=== PATIENT | female | born 1960 | race Caucasian/White ===

== ENCOUNTER 2019-07-27 13:51 | Observation (INO) | payer BC ==
[~2019-07-27] VITALS: Ht 162.6 cm; Wt 72.0 kg
[~2019-07-27 13:51] MED LIST: ESTR0.3T10 PO; PANT40TA39 PO; ZOLP5TAB8 PO
[2019-07-27 14:24] LABS: BASOPHILS # (AUTO) 0.1 X10'3 (0-0.2); BASOPHILS % (AUTO) 0.8 % (0-1); EOSINOPHILS # (AUTO) 0.2 X10'3 (0-0.9); EOSINOPHILS % (AUTO) 2.4 % (0-6); HEMATOCRIT 39.8 % (35.0-45.0); HEMOGLOBIN 13.5 g/dl (12.0-16.0); LYMPHOCYTES # (AUTO) 3.2 X10'3 (1.1-4.8); LYMPHOCYTES % (AUTO) 51.4 % (21-51); MEAN CORPUSCULAR HEMOGLOBIN 30.9 PG (27.0-31.0); MEAN PLATELET VOLUME 8.2 FL (7.4-10.4); MONOCYTES # (AUTO) 0.5 X10'3 (0-0.9); MONOCYTES % (AUTO) 7.8 % (2-12); NEUTROPHILS # (AUTO) 2.4 X10'3 (1.8-7.7); NEUTROPHILS % (AUTO) 37.6 % (42-75); PLATELET COUNT 289 X10'3 (140-440); RED BLOOD COUNT 4.37 X10'6 (4.20-5.60); WHITE BLOOD COUNT 6.3 X10'3 (4.5-11.0)
[2019-07-27 14:36] LABS: PARTIAL THROMBOPLASTIN TIME 27 SECONDS (22-32)
[2019-07-27 14:39] LABS: ALANINE AMINOTRANSFERASE 46 U/L (12-78); ALBUMIN 3.9 G/DL (3.4-5.0); ALBUMIN/GLOBULIN RATIO 1.1 (1.1-1.5); ALKALINE PHOSPHATASE 67 IU/L (46-116); ANION GAP 5 (8-16); ASPARTATE AMINO TRANSFERASE 23 U/L (10-37); BILIRUBIN,TOTAL 0.5 MG/DL (0.1-1.0); BLOOD UREA NITROGEN 12 MG/DL (7-18); BUN/CREATININE RATIO 16.4 (6.6-38.0); CALCIUM 9.4 MG/DL (8.5-10.1); CHLORIDE 103 MMOL/L (99-107); CREATININE 0.73 MG/DL (0.40-0.90); GLUCOSE 88 MG/DL (70-104); SODIUM 139 MMOL/L (135-145); TOTAL CARBON DIOXIDE 31.4 MMOL/L (24-32); TOTAL PROTEIN 7.5 G/DL (6.4-8.2); eGFR 81 ML/MIN
[2019-07-27 14:58] LABS: PLATELET ESTIMATE NORMAL; TOTAL CELLS COUNTED 100
[2019-07-27 14:59] LABS: GIANT PLATELET FEW
[2019-07-27] MEDS ORDERED: PANT40TA4 PO (16:38)
[2019-07-27] MEDS ORDERED: IRBE1TAB33 PO (16:38)
[2019-07-27] MEDS ORDERED: MONT10TA24 PO (16:38)
[2019-07-27] MEDS ORDERED: ALBU8.5H8 IH (16:38)
[2019-07-27] MEDS ORDERED: ESTR0.452 PO (16:38)
[2019-07-27] MEDS ORDERED: SUMA100T16 PO (16:38)
[2019-07-27] MEDS ORDERED: LEVO25TA2 PO (16:38)
[2019-07-27] MEDS ORDERED: aspirin 81mg tab.chew PO ONE (16:50)
[2019-07-27] MEDS ORDERED: mag hydrox/Alum hydrox/simeth 30ml oral suspension PO PRN (19:45)
[2019-07-27] MEDS ORDERED: ondansetron/PF 4mg/2ml inj IV PRN (19:45)
[2019-07-27] MEDS ORDERED: acetaminophen 325mg tablet PO PRN (19:45)
[2019-07-27] MEDS ORDERED: magnesium hydroxide 30ml (MOM) UD suspension PO PRN (19:45)
[2019-07-27 20:10] LABS: HEMOGLOBIN A1C 5.9 % (4.5-6.2)
[2019-07-27] MEDS ORDERED: albuterol 2.5 MG/3 ML nebule NEB PRN (20:10)
[2019-07-27] MEDS: heparin, porcine 5000 units/ml vial SQ SCH (20:34)
--- NOTE | 2019-07-28 01:44 | NUR ---
assumed care from Sherman BROCK no questions or concerns after assuming care.
--- NOTE | 2019-07-28 01:47 | NUR ---
patient in bed eyes closed covers on eyes closed rr even un labored no observable s/s of acute stress/pain at this time will continue to monitor
[2019-07-28 03:24] LABS: CHOL/HDL RATIO 2.8 (0.00-4.99); CHOLESTEROL 239 MG/DL (0-200); HDL CHOLESTEROL 86 MG/DL (35-60); LDL CHOLESTEROL 142 MG/DL (50-100); TRIGLYCERIDES 83 MG/DL (20-135)
--- NOTE | 2019-07-28 04:27 | NUR ---
PARTIENT IN BED COVERS ON EYES CLOSED RR EVEN UN LABORED NO OBSERVABLE S/S OF ACUTE STRESS AT THIS TIME WILL CONTINUE TO MONITOR
--- NOTE | 2019-07-28 05:34 | NUR ---
ASKED TO REVIEW CHART BY NURSING SUP FOR ADMIT TO FLOOR.
--- NOTE | 2019-07-28 06:24 | NUR ---
SBAR TO KAYE RN NO QUESTIONS OR CONCERNS AFTER ASSUMING CARE
--- NOTE | 2019-07-28 07:20 | NUR ---
RECEIVED REPORT AND PATIENT FROM OR. PATIENT AWAKE ALERT AND ORIENTED . DENIES CHEST PAIN, SOB, AND NAUSEA AT THIS TIME. PLACED IN ROOM 307; BED LOW AND LOCKED ,CALL LIGHT IN REACH. TELE MONITOR SHOWS SR NO ECTOPY. Addendum: 07/28/19 at 1047 by Jayashree Maurer RN Amended: Links added.
[2019-07-28 07:31] VITALS: BP 140/77
[2019-07-28] MEDS ORDERED: pantoprazole 40mg Tablet.DR PO SCH (08:00)
[2019-07-28] MEDS ORDERED: losartan 50mg tablet PO SCH (08:00)
[2019-07-28] MEDS ORDERED: levoTHYROXINE 25mcg tablet PO SCH (08:00)
[2019-07-28] MEDS ORDERED: montelukast 10mg tablet PO SCH (08:00)
[2019-07-28] MEDS ORDERED: HYDROchlorothiazide 12.5mg capsule PO SCH (08:00)
[2019-07-28] MEDS ORDERED: ESTROGENS CONJUGATED 0.45 MG PO SCH (08:00)
[2019-07-28] MEDS: heparin, porcine 5000 units/ml vial SQ SCH (08:23)
--- NOTE | 2019-07-28 10:41 | NUR ---
DR. COTTER INTO SEE PATIENT, ORDERS GIVEN AND NOTED. PATIENT DENIES CHEST PAIN, SOB, AND, OR, NAUSEA AT THIS TIME. Addendum: 07/28/19 at 1043 by Jayashree Maurer RN Amended: Links added.
[2019-07-28 11:00] VITALS: BP 148/85
== END 2019-07-28 14:00 | disposition home or self-care (01) ==
LOC: ER 13:51 → ED HOLD 20:01 → MED 3N 07-28 07:00
PROVIDERS: ADMIT Internal Medicine; ATTEND Family Medicine
DX: R07.89 Other chest pain (principal); I20.0 Unstable angina; I10 Essential (primary) hypertension; Z90.49 Acquired absence of other specified parts of digestive tract; Z90.710 Acquired absence of both cervix and uterus; Z93.3 Colostomy status; Z79.899 Other long term (current) drug therapy; Z88.2 Allergy status to sulfonamides
CPT/HCPCS: 36415; 71045; 80053; 80061; 83036; 84484; 85025; 85610; 85730; 87081; 93005; 93306; 94760; 96372; 99284; G0378; J1644

== ENCOUNTER 2024-03-20 13:32 | Emergency (ER) | payer MEDICARE, OTHER ==
[~2024-03-20] VITALS: Ht 162.6 cm; Wt 85.5 kg
[~2024-03-20 13:32] MED LIST changes: +ALBU8.5H17 IH; -ESTR0.3T10 PO; +ESTR0.452 PO; +IRBE1TAB33 PO; +LEVO25TA2 PO; +MONT-40 PO; -PANT40TA39 PO; +PANT40TA54 PO; +SUMA100T16 PO; -ZOLP5TAB8 PO
[2024-03-20 14:03] LABS: BASOPHILS # (AUTO) 0.1 X10'3 (0-0.2); BASOPHILS % (AUTO) 0.9 % (0-1); EOSINOPHILS # (AUTO) 0.1 X10'3 (0-0.9); HEMATOCRIT 40.4 % (35.0-45.0); HEMOGLOBIN 13.5 g/dl (12.0-16.0); LYMPHOCYTES # (AUTO) 2.9 X10'3 (1.1-4.8); LYMPHOCYTES % (AUTO) 43.7 % (21-51); MEAN CORPUSCULAR HEMOGLOBIN 30.8 PG (27.0-31.0); MEAN CORPUSCULAR HGB CONC 33.5 g/dL (33.0-36.5); MEAN CORPUSCULAR VOLUME 91.9 FL (78-98); MEAN PLATELET VOLUME 8.6 FL (7.4-10.4); MONOCYTES # (AUTO) 0.6 X10'3 (0-0.9); MONOCYTES % (AUTO) 9.6 % (2-12); NEUTROPHILS # (AUTO) 2.9 X10'3 (1.8-7.7); NEUTROPHILS % (AUTO) 43.8 % (42-75); PLATELET COUNT 273 X10'3 (140-440); RED BLOOD COUNT 4.39 X10'6 (4.20-5.60); RED CELL DISTRIBUTION WIDTH 13.7 % (11.5-14.5); WHITE BLOOD COUNT 6.6 X10'3 (4.5-11.0)
[2024-03-20 14:16] LABS: ALBUMIN 3.6 G/DL (3.4-5.0); ANION GAP 7 (8-16); BLOOD UREA NITROGEN 15 MG/DL (7-18); BUN/CREATININE RATIO 19.7 (10.0-20.0); CALCIUM 9.2 MG/DL (8.5-10.1); CHLORIDE 104 MMOL/L (99-107); CREATININE 0.76 MG/DL (0.40-0.90); GLUCOSE 96 MG/DL (70-104); POTASSIUM 3.5 MMOL/L (3.5-5.1); PRO BRAIN NATRIURETIC PEPTIDE 140 PG/ML (0-125); SODIUM 138 MMOL/L (135-145); TOTAL CARBON DIOXIDE 27.4 MMOL/L (24-32); eCRCL 64 ML/MIN; eGFR 76 ML/MIN
[2024-03-20 16:59] VITALS: BP 151/82; PULSE 60; RESP 17; TEMP 97.2; O2SAT 100
== END 2024-03-20 17:00 | disposition home or self-care (01) ==
LOC: ER 13:32
DX: R07.89 Other chest pain (principal); I10 Essential (primary) hypertension; E03.9 Hypothyroidism, unspecified; Z88.2 Allergy status to sulfonamides; Z79.899 Other long term (current) drug therapy; Z98.890 Other specified postprocedural states; Z90.49 Acquired absence of other specified parts of digestive tract; Z90.710 Acquired absence of both cervix and uterus
CPT/HCPCS: 36415; 71045; 80048; 83880; 84484; 85025; 93005; 99285